=== PATIENT | male | born 1975 | race Caucasian/White ===

== ENCOUNTER 2016-11-30 15:35 | Outpatient (CLI) | payer BC ==
[~2016-11-30 15:35] MED LIST: BLOO-129 IN; DULO60CA45 PO; GLYB5TAB7 PO; HYDR-3326 GT; HYDR2TAB35 PO; LEVO50TA8 PO; LISI10TA59 PO; LORA1TAB82 PO; METF10002 PO; METO25TA6 PO; ZOLP10TA2 PO
== END 2016-11-30 23:59 | disposition home or self-care (01) ==
LOC: WOU 15:35
PROVIDERS: ATTEND Podiatrist Foot & Ankle Surgery
DX: E11.621 Type 2 diabetes mellitus with foot ulcer (principal); L97.522 Non-pressure chronic ulcer of other part of left foot with fat layer exposed; E11.610 Type 2 diabetes mellitus with diabetic neuropathic arthropathy; E11.40 Type 2 diabetes mellitus with diabetic neuropathy, unspecified; Z86.718 Personal history of other venous thrombosis and embolism; E66.01 Morbid (severe) obesity due to excess calories; Z68.43 Body mass index [BMI] 50.0-59.9, adult; Z71.3 Dietary counseling and surveillance; Z99.3 Dependence on wheelchair; Z79.02 Long term (current) use of antithrombotics/antiplatelets
CPT/HCPCS: 11042; 87070; 87075; A6402; 87186-TC

== ENCOUNTER 2016-12-28 13:45 | Outpatient (CLI) | payer BC | END 2016-12-28 23:59 | disposition home or self-care (01) | LOC: WOU 13:45 | PROVIDERS: ATTEND Podiatrist Foot & Ankle Surgery | DX: E11.621 Type 2 diabetes mellitus with foot ulcer (principal); L97.522 Non-pressure chronic ulcer of other part of left foot with fat layer exposed; E11.610 Type 2 diabetes mellitus with diabetic neuropathic arthropathy; E11.42 Type 2 diabetes mellitus with diabetic polyneuropathy; Z79.84 Long term (current) use of oral hypoglycemic drugs; Z79.02 Long term (current) use of antithrombotics/antiplatelets; Z86.718 Personal history of other venous thrombosis and embolism; E66.01 Morbid (severe) obesity due to excess calories; Z68.43 Body mass index [BMI] 50.0-59.9, adult; Z71.3 Dietary counseling and surveillance; Z83.3 Family history of diabetes mellitus; Z88.6 Allergy status to analgesic agent | CPT/HCPCS: 11042; 87070; 87077; 87186; A6402 ==

== ENCOUNTER 2017-01-11 12:15 | Outpatient (CLI) | payer BC | END 2017-01-11 23:59 | disposition home or self-care (01) | LOC: WOU 12:15 | PROVIDERS: ATTEND Podiatrist Foot & Ankle Surgery | DX: E11.621 Type 2 diabetes mellitus with foot ulcer (principal); L97.522 Non-pressure chronic ulcer of other part of left foot with fat layer exposed; L60.0 Ingrowing nail; E11.42 Type 2 diabetes mellitus with diabetic polyneuropathy; E66.01 Morbid (severe) obesity due to excess calories; Z68.43 Body mass index [BMI] 50.0-59.9, adult; Z86.718 Personal history of other venous thrombosis and embolism; Z83.3 Family history of diabetes mellitus; E11.610 Type 2 diabetes mellitus with diabetic neuropathic arthropathy; L03.116 Cellulitis of left lower limb | CPT/HCPCS: 11042; 11730; A6402 ==

== ENCOUNTER 2017-04-09 15:55 | Outpatient (CLI) | payer BC | END 2017-04-09 23:59 | disposition home or self-care (01) | LOC: WOU 15:55 | PROVIDERS: ATTEND Podiatrist Foot & Ankle Surgery | DX: E11.621 Type 2 diabetes mellitus with foot ulcer (principal); L97.521 Non-pressure chronic ulcer of other part of left foot limited to breakdown of skin; L03.116 Cellulitis of left lower limb; E11.610 Type 2 diabetes mellitus with diabetic neuropathic arthropathy; E11.42 Type 2 diabetes mellitus with diabetic polyneuropathy; Z79.84 Long term (current) use of oral hypoglycemic drugs; Z79.01 Long term (current) use of anticoagulants; E66.9 Obesity, unspecified; Z68.23 Body mass index [BMI] 23.0-23.9, adult | CPT/HCPCS: 11042; A6402 ==

== ENCOUNTER 2017-04-19 08:50 | Outpatient (CLI) | payer BC | END 2017-04-19 23:59 | disposition home or self-care (01) | LOC: WOU 08:50 | PROVIDERS: ATTEND Podiatrist Foot & Ankle Surgery | DX: E11.621 Type 2 diabetes mellitus with foot ulcer (principal); L97.521 Non-pressure chronic ulcer of other part of left foot limited to breakdown of skin; E11.42 Type 2 diabetes mellitus with diabetic polyneuropathy; L84 Corns and callosities; E11.610 Type 2 diabetes mellitus with diabetic neuropathic arthropathy; M21.171 Varus deformity, not elsewhere classified, right ankle; Z86.718 Personal history of other venous thrombosis and embolism; Z79.84 Long term (current) use of oral hypoglycemic drugs; Z79.01 Long term (current) use of anticoagulants | CPT/HCPCS: 11042; A6402 ×2 ==

== ENCOUNTER 2017-05-03 13:45 | Outpatient (CLI) | payer BC | END 2017-05-03 23:59 | disposition home or self-care (01) | LOC: WOU 13:45 | PROVIDERS: ATTEND Podiatrist Foot & Ankle Surgery | DX: E11.621 Type 2 diabetes mellitus with foot ulcer (principal); L97.521 Non-pressure chronic ulcer of other part of left foot limited to breakdown of skin; E11.610 Type 2 diabetes mellitus with diabetic neuropathic arthropathy; E11.42 Type 2 diabetes mellitus with diabetic polyneuropathy; E11.65 Type 2 diabetes mellitus with hyperglycemia; E46 Unspecified protein-calorie malnutrition; Z68.23 Body mass index [BMI] 23.0-23.9, adult; Z89.422 Acquired absence of other left toe(s); Z86.718 Personal history of other venous thrombosis and embolism; Z79.84 Long term (current) use of oral hypoglycemic drugs; Z79.01 Long term (current) use of anticoagulants | CPT/HCPCS: 11042; A6402 ==

== ENCOUNTER 2017-05-07 13:20 | Outpatient (CLI) | payer BC | END 2017-05-07 23:59 | disposition home or self-care (01) | LOC: WOU 13:20 | PROVIDERS: ATTEND Surgery Vascular Surgery | DX: Z48.812 Encounter for surgical aftercare following surgery on the circulatory system (principal); Z86.718 Personal history of other venous thrombosis and embolism; Z79.01 Long term (current) use of anticoagulants | CPT/HCPCS: 99214; A6402; G0463 ==

== ENCOUNTER 2017-05-14 09:00 | Outpatient (CLI) | payer BC | END 2017-05-14 23:59 | disposition home or self-care (01) | LOC: WOU 09:00 | PROVIDERS: ATTEND Podiatrist Foot & Ankle Surgery | DX: E11.621 Type 2 diabetes mellitus with foot ulcer (principal); L97.521 Non-pressure chronic ulcer of other part of left foot limited to breakdown of skin; M21.172 Varus deformity, not elsewhere classified, left ankle; M21.171 Varus deformity, not elsewhere classified, right ankle; E11.42 Type 2 diabetes mellitus with diabetic polyneuropathy; E11.610 Type 2 diabetes mellitus with diabetic neuropathic arthropathy; Z86.718 Personal history of other venous thrombosis and embolism; I87.9 Disorder of vein, unspecified; Z79.84 Long term (current) use of oral hypoglycemic drugs; Z79.01 Long term (current) use of anticoagulants | CPT/HCPCS: 11042; 93970-TC; A6402 ==

== ENCOUNTER 2017-05-22 09:45 | Outpatient (CLI) | payer BC | END 2017-05-22 23:59 | disposition home or self-care (01) | LOC: WOU 09:45 | PROVIDERS: ATTEND Podiatrist Foot & Ankle Surgery | DX: E11.621 Type 2 diabetes mellitus with foot ulcer (principal); L97.422 Non-pressure chronic ulcer of left heel and midfoot with fat layer exposed; L84 Corns and callosities; E66.9 Obesity, unspecified; Z68.23 Body mass index [BMI] 23.0-23.9, adult; E11.610 Type 2 diabetes mellitus with diabetic neuropathic arthropathy; M21.172 Varus deformity, not elsewhere classified, left ankle; M21.171 Varus deformity, not elsewhere classified, right ankle; Z86.718 Personal history of other venous thrombosis and embolism; E11.42 Type 2 diabetes mellitus with diabetic polyneuropathy; Z79.84 Long term (current) use of oral hypoglycemic drugs; Z79.01 Long term (current) use of anticoagulants | CPT/HCPCS: 11042; A6402 ==

== ENCOUNTER 2017-06-11 13:21 | Outpatient (CLI) | payer BC | END 2017-06-11 23:59 | disposition home or self-care (01) | LOC: WOU 13:21 | PROVIDERS: ATTEND Podiatrist Foot & Ankle Surgery | DX: E11.621 Type 2 diabetes mellitus with foot ulcer (principal); L97.521 Non-pressure chronic ulcer of other part of left foot limited to breakdown of skin; E11.42 Type 2 diabetes mellitus with diabetic polyneuropathy; R60.0 Localized edema; E11.610 Type 2 diabetes mellitus with diabetic neuropathic arthropathy; Z88.6 Allergy status to analgesic agent; Z79.84 Long term (current) use of oral hypoglycemic drugs; Z79.01 Long term (current) use of anticoagulants | CPT/HCPCS: 11042; A6402 ==

== ENCOUNTER 2017-06-25 13:15 | Outpatient (CLI) | payer BC | END 2017-06-25 23:59 | disposition home or self-care (01) | LOC: WOU 13:15 | PROVIDERS: ATTEND Podiatrist Foot & Ankle Surgery | DX: E11.621 Type 2 diabetes mellitus with foot ulcer (principal); L97.521 Non-pressure chronic ulcer of other part of left foot limited to breakdown of skin; E11.610 Type 2 diabetes mellitus with diabetic neuropathic arthropathy; M21.10 Varus deformity, not elsewhere classified, unspecified site; E11.42 Type 2 diabetes mellitus with diabetic polyneuropathy; E66.9 Obesity, unspecified; Z68.23 Body mass index [BMI] 23.0-23.9, adult | CPT/HCPCS: 11042; A6402 ==

== ENCOUNTER 2017-07-05 14:54 | Outpatient (CLI) | payer BC | END 2017-07-05 23:59 | disposition home or self-care (01) | LOC: WOU 14:54 | PROVIDERS: ATTEND Podiatrist Foot & Ankle Surgery | DX: E11.621 Type 2 diabetes mellitus with foot ulcer (principal); L97.521 Non-pressure chronic ulcer of other part of left foot limited to breakdown of skin; L84 Corns and callosities; E11.610 Type 2 diabetes mellitus with diabetic neuropathic arthropathy; E11.42 Type 2 diabetes mellitus with diabetic polyneuropathy; Z89.422 Acquired absence of other left toe(s); Z79.84 Long term (current) use of oral hypoglycemic drugs | CPT/HCPCS: 11042; A6402 ==

== ENCOUNTER 2017-07-19 13:55 | Outpatient (CLI) | payer BC ==
[2017-07-19] MEDS ORDERED: CEFT2VIA14 IV (17:05)
[2017-07-19] MEDS ORDERED: RIVA10TA PO (17:05)
[2017-07-19] MEDS ORDERED: SITA100T PO (17:05)
[2017-07-19] MEDS ORDERED: GLIM4TAB PO (17:05)
[2017-07-20] MEDS ORDERED: ANESTHESIA TRAY IN PYXIS 1 EA TRAY MC ONE (10:55)
== END 2017-07-19 23:59 | disposition home or self-care (01) ==
LOC: WOU 13:55
PROVIDERS: ATTEND Podiatrist Foot & Ankle Surgery
DX: E11.621 Type 2 diabetes mellitus with foot ulcer (principal); L97.521 Non-pressure chronic ulcer of other part of left foot limited to breakdown of skin; L02.611 Cutaneous abscess of right foot; Z89.422 Acquired absence of other left toe(s); L03.115 Cellulitis of right lower limb; E11.42 Type 2 diabetes mellitus with diabetic polyneuropathy; E66.9 Obesity, unspecified; Z68.23 Body mass index [BMI] 23.0-23.9, adult; E11.610 Type 2 diabetes mellitus with diabetic neuropathic arthropathy; Z79.84 Long term (current) use of oral hypoglycemic drugs
CPT/HCPCS: 10140; 87070-TC; 87075-TC; A6402; J2405; J2704

== ENCOUNTER 2017-07-19 16:05 | Inpatient (IN) | payer BC, OTHER ==
[~2017-07-19] VITALS: Ht 167.6 cm; Wt 145.1 kg
--- NOTE | 2017-07-19 16:15 | NUR ---
AAOX3, SENT BY DR MARION FOR R FOOT SWELLING AND PAIN. SKIN IS WARM AND DRY. RESP IS EVEN AND UNLABORED WITH NAD NOTED. DR LOUISE AT BS FOR EVAL.
[2017-07-19 16:56] LABS: EOSINOPHILS # (AUTO) 0.1 /CMM (0.0-0.7); MEAN CORPUSCULAR HEMOGLOBIN 25 PG (26.0-33.0); NEUTROPHILS # (AUTO) 13.3 /CMM (1.8-8.9)
[2017-07-19 16:57] LABS: BASOPHILS # (AUTO) 0.4 /CMM (0.0-0.2); BASOPHILS % (AUTO) 2.6 % (0.0-2.0); EOSINOPHILS % (AUTO) 0.5 % (0.0-6.0); HEMATOCRIT 33 % (39-51); HEMOGLOBIN 10.6 g/dL (13.5-17.5); LYMPHOCYTES % (AUTO) 6.3 % (20.0-44.0); MEAN CORPUSCULAR HGB CONC 32 g/dl (31.0-36.0); MEAN CORPUSCULAR VOLUME 79 fL (80-96); MONOCYTES % (AUTO) 6.2 % (2.0-12.0); NEUTROPHILS % (AUTO) 84.4 % (43.0-81.0); PLATELET COUNT (AUTO) 286 /CMM (150-450); RDW COEFFICIENT OF VARIATION 14.1 (11.5-15.0); RED BLOOD CELL COUNT(AUTO) 4.21 MIL/uL (4.5-6.0); WHITE BLOOD COUNT (AUTO) 15.8 K/uL (4.3-11.0)
[2017-07-19 17:03] LABS: CALCIUM, SERUM 8.2 mg/dL (8.5-10.1); CREATININE 1.3 mg/dL (0.6-1.3); POTASSIUM 4.3 mmol/L (3.5-5.1)
[2017-07-19] MEDS ORDERED: SITA100T PO (17:05)
[2017-07-19] MEDS ORDERED: CEFT2VIA14 IV (17:05)
[2017-07-19] MEDS ORDERED: GLIM4TAB PO (17:05)
[2017-07-19] MEDS ORDERED: RIVA10TA PO (17:05)
[2017-07-19 17:07] LABS: INR 1.08 (0.87-1.13); PROTHROMBIN TIME 11.2 SECS (9.5-12.7)
[2017-07-19] MEDS ORDERED: VANCOMYCIN 1.5 GM in IV D5W 500ml IV ONE (18:00)
[2017-07-19] MEDS ORDERED: PIPERACILLIN /TAZOBACTAM 3.375 G in IV D5W 50 ML IV ONE (18:00)
--- NOTE | 2017-07-19 18:06 | NUR ---
REPORT GIVEN TO SENA DODSON FOR MARCIN MS 307
--- NOTE | 2017-07-19 18:09 | NUR ---
RN NOTES RECEIVED REPORT FROM SHANK MAKER ALBERT FOR CONTINUATION OF CARE. PATIENT TO BE SENT TO MS [id number]. WILL AWAIT PATIENT ARRIVAL.
--- NOTE | 2017-07-19 18:36 | NUR ---
RN NOTES PATIENT RECEIVED IN STABLE CONDITION. PATIENT ADMITTED FOR RIGHT FOOT ABSCESS/CELLULITIS. I&D/DEBRIDEMENT SCHEDULED FOR TOMORROW (07/20) WITH DR. MARION. PATIENT RESTING IN BED WITH FAMILY AT THE BEDSIDE. PATIENT IS A/OX3. SATURATING ADEQUATELY ON RA. RESPIRATIONS APPEAR TO BE EVEN AND UNLABORED. PATIENT HAS NO COMPLAINT OF PAIN AT THIS TIME. PATIENT DENIES SOB. PATIENT APPEARS TO BE IN NO ACUTE DISTRESS. PATIENT HAS BANDAGED WOUNDS BILATERALLY. BED LOCKED IN THE LOWEST POSITION WITH SIDERAILS UP X2. CALL LIGHT WITHIN REACH. ADMISSION PROTOCOL TO BE CARRIED OUT BY NIGHT RN. REPORT GIVEN TO NIGHT RN FOR CONTINUATION OF CARE.
[2017-07-19] MEDS ORDERED: FEE PK DOSING 1 MIN EA MC ONE (19:42)
[2017-07-19 20:46] VITALS: BP 124/71
[2017-07-19] MEDS ORDERED: ACETAMINOPHEN 325 MG TABLET PO PRN (21:00)
[2017-07-19] MEDS ORDERED: ONDANSETRON HCL/PF 4 MG/2 ML VIAL IVP PRN (21:00)
[2017-07-19] MEDS ORDERED: HYDROCODONE/APAP 5/325MG 1 EACH TABLET PO PRN (21:00)
[2017-07-19] MEDS ORDERED: ZOLPIDEM TARTRATE 5 MG TABLET PO PRN (21:00)
[2017-07-19] MEDS ORDERED: Z GUARD REMEDY 2 OZ OINT TP PRN (21:00)
[2017-07-19] MEDS ORDERED: HYDROMORPHONE 1 MG/1 ML DISP.SYRIN ONE (21:33)
[2017-07-19] MEDS: HYDROMORPHONE INJ 2 MG/ML DISP.SYRIN IV PRN (21:40)
[2017-07-19] MEDS: LORAZEPAM 1 MG TABLET PO SCH (22:28)
[2017-07-19] MEDS: ZOLPIDEM TARTRATE 10 MG TABLET PO SCH (22:28)
[2017-07-19] MEDS ORDERED: DULOXETINE HCL 30 MG CAPSULE.DR ONE (22:59)
[2017-07-19] MEDS ORDERED: DULOXETINE HCL 20 MG CAPSULE.DR PO SCH (23:00)
[2017-07-20] MEDS: PIPERACILLIN /TAZOBACTAM 3.375 G in IV D5W 50 ML IV SCH ×4 (01:49→18:49)
[2017-07-20] MEDS ORDERED: HYDROMORPHONE INJ 2 MG/ML DISP.SYRIN ONE ×3 (01:54→08:25)
[2017-07-20] MEDS: HYDROMORPHONE INJ 2 MG/ML DISP.SYRIN IV PRN ×5 (02:03→19:57)
--- NOTE | 2017-07-20 07:15 | NUR ---
MS RN NOTES RECEIVED PATIENT IN BED, AWAKE. A/O X4. PATIENT IS FOR DEBRIDEMENT WOUND TODAY, PATIENT IS AWARE. ON ROOM AIR, NO SOB. CHANTAL PICC LINE PATENT AND INTACT, FLUSHES WELL. NO C/O PAIN AT THIS TIME. CALL LIGHT WITHIN REACH. CONSENT FORM FOR SURGERY IS IN THE CHART.
--- NOTE | 2017-07-20 07:22 | NUR ---
MS RN CLOSING NOTE PT REMAINED STABLE DURING DIRECTOR OF MANUFACTURING, NO SIGNIFICANT CHANGES NOTED, WILL ENDORSE TO INCOMING NURSE.
[2017-07-20] MEDS: LEVOTHYROXINE SODIUM 50 MCG TABLET PO SCH ×2 (07:30→10:35)
[2017-07-20 07:31] LABS: BASOPHILS % (AUTO) 0.3 % (0.0-2.0); EOSINOPHILS # (AUTO) 0.1 /CMM (0.0-0.7); EOSINOPHILS % (AUTO) 0.7 % (0.0-6.0); HEMATOCRIT 32 % (39-51); HEMOGLOBIN 10.1 g/dL (13.5-17.5); LYMPHOCYTES # (AUTO) 1.1 /CMM (0.8-4.8); LYMPHOCYTES % (AUTO) 8.8 % (20.0-44.0); MEAN CORPUSCULAR HEMOGLOBIN 26 PG (26.0-33.0); MEAN CORPUSCULAR HGB CONC 32 g/dl (31.0-36.0); MEAN CORPUSCULAR VOLUME 81 fL (80-96); MONOCYTES # (AUTO) 0.8 /CMM (0.1-1.30); MONOCYTES % (AUTO) 6.6 % (2.0-12.0); NEUTROPHILS # (AUTO) 10.5 /CMM (1.8-8.9); NEUTROPHILS % (AUTO) 83.6 % (43.0-81.0); PLATELET COUNT (AUTO) 258 /CMM (150-450); RDW COEFFICIENT OF VARIATION 14.5 (11.5-15.0); RED BLOOD CELL COUNT(AUTO) 3.91 MIL/uL (4.5-6.0); WHITE BLOOD COUNT (AUTO) 12.5 K/uL (4.3-11.0)
[2017-07-20 07:50] LABS: BILIRUBIN,TOTAL 0.4 mg/dL (0.2-1.0); CALCIUM, SERUM 8.2 mg/dL (8.5-10.1); CREATININE 1.1 mg/dL (0.6-1.3); MAGNESIUM 1.5 mg/dL (1.8-2.4); PHOSPHORUS 4.5 mg/dL (2.5-4.9); TOTAL PROTEIN, SERUM 6.7 g/dL (6.4-8.2)
[2017-07-20 07:57] LABS: THYROID STIMULATING HORMONE 1.683 uIU/mL (0.358-3.74)
[2017-07-20 08:00] VITALS: BP 127/65
--- NOTE | 2017-07-20 08:00 | NUR ---
PATIENT IS TAKEN TO OR FOR DEBRIDEMENT WOUND.
[2017-07-20] MEDS ORDERED: MIDAZOLAM HCL 2 MG/2ML VIAL ONE ×2 (08:25→08:39)
[2017-07-20] MEDS: METFORMIN 500 MG TABLET PO SCH ×3 (09:00→17:36)
[2017-07-20] MEDS: RIVAROXABAN 10 MG TABLET PO SCH (09:00)
[2017-07-20] MEDS ORDERED: DULOXETINE HCL 30 MG CAPSULE.DR PO SCH (09:00)
[2017-07-20] MEDS: LINAGLIPTIN 5 MG TABLET PO SCH (09:00)
[2017-07-20] MEDS: GLIMEPIRIDE 4 MG TABLET PO SCH (09:00)
--- NOTE | 2017-07-20 09:00 | NUR ---
AM MEDICATIONS NON ADMINISTERED, PATIENT STILL IN THE OR FOR DEBRIDEMENT.
[2017-07-20] MEDS: LISINOPRIL (10MG) 10 MG TABLET PO SCH (10:31)
--- NOTE | 2017-07-20 10:35 | NUR ---
PATIENT IS BACK FROM OR, S/P RIGHT FOOT I&D AND LEFT FOOT DEBRIDEMENT BY DR. PURCELL. MADE COMFORTABLE IN BED, WILDA. FOOT DRESSING IN PLACE, NO C/O PAIN AT THIS TIME. WILL CONT TO MONITOR.
[2017-07-20] MEDS: METOPROLOL TARTRATE 25 MG TABLET PO SCH ×2 (10:38→17:00)
[2017-07-20] MEDS: VANCOMYCIN 1.5 GM in IV D5W 500 ML IV SCH ×2 (11:24→22:56)
[2017-07-20] MEDS ORDERED: VANCOMYCIN 1.5 GM in IV D5W 500 ML IV SCH (12:00)
[2017-07-20] MEDS: Magnesium 1GM/D5W 100ML PREMIX 100 ML IV SCH ×2 (14:54→15:59)
[2017-07-20] MEDS ORDERED: DEXTROSE 50%-WATER 50 ML DISP.SYRIN IV PRN (15:00)
[2017-07-20 16:00] VITALS: BP 109/75
--- NOTE | 2017-07-20 16:46 | NUR ---
PER PATIENT HE HAS MILD ITCHING IN THE IV SITE AFTER VANCOMYCIN IS FINISHED. NO C/O SOB, MILD SKIN RASH NEAR IV PICC LINE TUBE NOTED. NOTIFIED DR. ANDRES WITH NEW ORDERS NOTED AND ACKNOWLEDGED.
[2017-07-20] MEDS: diphenhydrAMINE HCL 50 MG/ML VIAL IV PRN ×2 (17:01→23:02)
[2017-07-20] MEDS: BLOOD SUGAR DIAGNOSTIC 1 EACH STRIP VI SCH ×2 (17:36→21:11)
[2017-07-20] MEDS: INSULIN REGULAR, HUMAN 100 UNIT/ML 3 ML VIAL SQ PRN (17:38)
[2017-07-20] MEDS ORDERED: DULOXETINE HCL 20 MG CAPSULE.DR PO SCH (18:00)
--- NOTE | 2017-07-20 18:21 | NUR ---
MS RN CLOSING NOTES PATIENT IN BED, NOT IN DISTRESS. S/P RIGHT FOOT I&D AND LEFT FOOT DEBRIDEMENT WOUND TODAY, BOTH FEET DRESSING IN PLACE, NO BLEEDING NOTED. ON ANTIBIOTIC WITH NO ADVERSE SIDE EFFECT, AFEBRILE, NO DIARRHEA. NO C/O PAIN AT THIS TIME. PLACE CALL LIGHT WITHIN REACH. WILL ENDORSE TO LATH HAND RN FOR CONTINUITY OF CARE.
[2017-07-20] MEDS: LACTOBACILLUS RHAMNOSUS GG 1 EACH CAP.SPRINK PO SCH (18:50)
--- NOTE | 2017-07-20 19:30 | NUR ---
RN NOTES RECEIVED PATIENT IN BED AWAKE, AO X 3, ABLE TO MAKE NEEDS KNOWN. NO ACUTE DISTRESS NOTED. MONITORED FOR PAIN. NO SYMPTOMS OF HYPER/HYPOGLYCEMIA. IV SITE PATENT, INTACT; FLUSHED. BLE DRESSING INTACT. SAFETY REMINDERS GIVEN. ON LOW BED WITH BILATERAL UPPER SIDE RAILS UP. CALL LIGHT WITHIN EASY REACH. WILL CONTINUE TO MONITOR.
[2017-07-20 20:00] VITALS: BP 115/60
[2017-07-20] MEDS: DULOXETINE HCL 20 MG CAPSULE.DR PO SCH (21:11)
[2017-07-20] MEDS: LORAZEPAM 1 MG TABLET PO SCH (21:12)
[2017-07-20] MEDS: ZOLPIDEM TARTRATE 10 MG TABLET PO SCH (21:12)
[2017-07-20] MEDS: *INSULIN REGULAR(HUMULIN R)HUM 100 UNIT/ML VIAL SQ PRN (21:14)
--- NOTE | 2017-07-20 23:02 | NUR ---
RN NOTES PATIENT C/O ITCHINESS. BENADRYL GIVEN ORDERED. WILL CONTINUE TO MONITOR.
[2017-07-21] MEDS: HYDROMORPHONE INJ 2 MG/ML DISP.SYRIN IV PRN ×5 (01:32→21:10)
[2017-07-21] MEDS: PIPERACILLIN /TAZOBACTAM 3.375 G in IV D5W 50 ML IV SCH ×4 (01:32→19:30)
[2017-07-21] MEDS: diphenhydrAMINE HCL 50 MG/ML VIAL IV PRN ×2 (05:07→13:09)
--- NOTE | 2017-07-21 06:07 | NUR ---
RN NOTES PATIENT IN BED WITH EYES CLOSED; EASILY AROUSABLE. RESPIRATIONS EVEN. NO SIGNS OF PAIN NOTED. NO SYMPTOMS OF HYPER/HYPOGLYCEMIA. DUE MEDS GIVEN WITH NO ASE NOTED. NEEDS ATTENDED. SAFETY PRECAUTIONS AND COMFORT MEASURES IN PLACE. WILL GIVE REPORT TO DAY SHIFT FOR CONTINUITY OF CARE.
[2017-07-21] MEDS: BLOOD SUGAR DIAGNOSTIC 1 EACH STRIP VI SCH ×4 (06:42→21:54)
[2017-07-21] MEDS: INSULIN REGULAR, HUMAN 100 UNIT/ML 3 ML VIAL SQ PRN ×2 (06:44→12:34)
[2017-07-21 07:48] LABS: CALCIUM, SERUM 8.4 mg/dL (8.5-10.1); CREATININE 1.1 mg/dL (0.6-1.3); MAGNESIUM 1.7 mg/dL (1.8-2.4)
--- NOTE | 2017-07-21 08:00 | NUR ---
MS RN NOTES PT SLEEPING IN BED, NO DISCOMFORT OR ACUTE DISTRESS NOTED. PICC LINE ON RIGHT ARM, INTACT PATENT. BED IN LOW LOCKED POSITION. CONTINUING TO OBSERVE CLOSELY.
[2017-07-21] MEDS: METOPROLOL TARTRATE 25 MG TABLET PO SCH ×2 (08:26→17:10)
[2017-07-21] MEDS: LACTOBACILLUS RHAMNOSUS GG 1 EACH CAP.SPRINK PO SCH ×2 (08:27→17:10)
[2017-07-21] MEDS: RIVAROXABAN 10 MG TABLET PO SCH (08:27)
[2017-07-21] MEDS: LEVOTHYROXINE SODIUM 50 MCG TABLET PO SCH (08:27)
[2017-07-21] MEDS: LISINOPRIL (10MG) 10 MG TABLET PO SCH (08:27)
[2017-07-21] MEDS: GLIMEPIRIDE 4 MG TABLET PO SCH (08:28)
[2017-07-21] MEDS: LINAGLIPTIN 5 MG TABLET PO SCH (08:28)
[2017-07-21] MEDS: METFORMIN 500 MG TABLET PO SCH ×2 (08:28→17:10)
[2017-07-21] MEDS: DAKINS QUARTER STRENGTH (0.125%) 480 ML BOTTLE TOP SCH (08:38)
[2017-07-21 09:32] VITALS: BP 117/72
[2017-07-21] MEDS: VANCOMYCIN 1.5 GM in IV D5W 500 ML IV SCH ×3 (12:15→22:46)
[2017-07-21 16:00] VITALS: BP 109/70
[2017-07-21] MEDS: Magnesium 1GM/D5W 100ML PREMIX 100 ML IV SCH ×2 (18:08→20:48)
--- NOTE | 2017-07-21 19:45 | NUR ---
MS/RN NOTES RECEIVED PT. LYING IN BED. AWAKE, ALERT AND ORIENTED X4. BREATHING EVEN AND UNLABORED ON ROOM AIR. NO SOB, RESPIRATORY DISTRESS OR COMPLAINTS OF PAIN NOTED AT THIS TIME. PT. WITH RIGHT UPPER ARM PICC PRESENT, PATENT AND INTACT. BED IN LOWEST POSITION, CALL LIGHT WITHIN REACH, WILL CONTINUE TO MONITOR.
--- NOTE | 2017-07-21 20:30 | NUR ---
MS/RN NOTES PT. IS IN STABLE CONDITION. AWAKE, ALERT AND ORIENTED X4. BREATHING EVEN AND UNLABORED ON ROOM AIR. NO SOB, RESPIRATORY DISTRESS OR COMPLAINTS OF PAIN NOTED AT THIS TIME. PT. IS CURRENTLY LYING IN BED WATCHING TELEVISION. GAVE REPORT AND ENDORSED PT. TO RN JANET LOWE
[2017-07-21 20:35] VITALS: BP 117/74
--- NOTE | 2017-07-21 20:35 | NUR ---
MS RN NOTE RECEIVED PATIENT FROM ANOTHER RN, PATIENT IS ALERT AND ORIENTEDX4, DENIES RESPIRATORY DISTRESS OR PAIN AT THIS TIME, PICC LINE ON RIGHT UPPER ARM IS PATENT AND INTACT, HL ONLY. BOTH FEET ARE COVERED WITH DRESSINGS FOR CELLULITIS. SRX2, BED IN LOW POSITION, CALL LIGHT WITHIN REACH, WILL CONTINUE TO MONITOR PATIENT.
--- NOTE | 2017-07-21 21:00 | NUR ---
MS RN NOTE PATIENT COMPLAINS OF PAIN, DILAUDID 2MG WAS PULLED OUT FROM OMNICELL, AND WASTED 1MG WITH ANOTHER RN ARA WITNESS.
[2017-07-21] MEDS: DULOXETINE HCL 20 MG CAPSULE.DR PO SCH (21:52)
[2017-07-21] MEDS: ZOLPIDEM TARTRATE 10 MG TABLET PO SCH (21:52)
[2017-07-21] MEDS: LORAZEPAM 1 MG TABLET PO SCH (21:52)
[2017-07-22] MEDS: diphenhydrAMINE HCL 50 MG/ML VIAL IV PRN ×3 (00:07→16:40)
[2017-07-22] MEDS: PIPERACILLIN /TAZOBACTAM 3.375 G in IV D5W 50 ML IV SCH ×4 (00:52→18:57)
--- NOTE | 2017-07-22 01:00 | NUR ---
MS RN NOTE PATIENT COMPLAINS OF PAIN, DILAUDID 2MG WAS PULLED OUT FROM OMNICELL, AND WASTED 1MG WITH ANOTHER RN PABLO WITNESS. BUT ACCIDENTALLY PULLED OUT 2X DILAUDID VIALS INSTEAD OF 1 VIAL, REPORTED TO [facility] RN [place] AND WILL FIX THE STOCK COUNT IN OMNICELL.
--- NOTE | 2017-07-22 01:10 | NUR ---
MS RN NOTE PATIENT COMPLAINS OF PAIN ON HIS FEET, DILAUDID 1MG IVP GIVEN. WILL MONITOR EFFECTIVENESS.
[2017-07-22] MEDS: HYDROMORPHONE INJ 2 MG/ML DISP.SYRIN IV PRN ×6 (01:11→23:30)
--- NOTE | 2017-07-22 05:00 | NUR ---
MS RN NOTE PATIENT COMPLAINS OF PAIN, DILAUDID 2MG WAS PULLED OUT FROM OMNICELL, AND WASTED 1MG WITH ANOTHER RN ELLEN WITNESS.
--- NOTE | 2017-07-22 05:10 | NUR ---
MS RN NOTE PATIENT COMPLAINS OF PAIN AND KEEPS MOANING, DILAUDID 1MG IVP GIVEN. WILL MONITOR EFFECTIVENESS.
[2017-07-22] MEDS: INSULIN REGULAR, HUMAN 100 UNIT/ML 3 ML VIAL SQ PRN ×2 (06:14→12:37)
[2017-07-22] MEDS: BLOOD SUGAR DIAGNOSTIC 1 EACH STRIP VI SCH ×4 (06:21→21:44)
[2017-07-22 06:43] LABS: CALCIUM, SERUM 8.8 mg/dL (8.5-10.1); CREATININE 1.2 mg/dL (0.6-1.3); MAGNESIUM 1.7 mg/dL (1.8-2.4); POTASSIUM 4.2 mmol/L (3.5-5.1)
--- NOTE | 2017-07-22 06:47 | NUR ---
MS RN NOTE PATIENT IS SLEEPING IN BED COMFORTABLY, NO S/S OF RESPIRATORY DISTRESS AND NO COMPLAINS OF PAIN NOTED. NO ACUTE DISTRESS NOTED THROUGHOUT THE SHIFT, WILL ENDORSE TO DAY SHIFT NURSE FOR MARCIN.
--- NOTE | 2017-07-22 07:00 | NUR ---
MS RN NOTE FIXED DISCREPANCY OF DILAUDID THAT ACCIDENTALLY PULLED ONE MORE OUT AROUND 0100 WITH CHG SENA COLEMAN.
[2017-07-22 08:00] VITALS: BP 121/67
--- NOTE | 2017-07-22 08:00 | NUR ---
MS RN NOTES PATIENT IN BED RESTING NO SOB OR ACUTE DISTRESS NOTED. BED IN LOW LOCKED POSITION CALL LIGHT WITHIN REACH. PICC LINE ON RIGHT UPPER ARM INTACT PATENT. WILL CONTINUE TO MONITOR.
[2017-07-22] MEDS: GLIMEPIRIDE 4 MG TABLET PO SCH (08:10)
[2017-07-22] MEDS: METFORMIN 500 MG TABLET PO SCH ×2 (08:10→16:39)
[2017-07-22] MEDS: LEVOTHYROXINE SODIUM 50 MCG TABLET PO SCH (08:10)
[2017-07-22] MEDS: METOPROLOL TARTRATE 25 MG TABLET PO SCH ×2 (08:11→16:41)
[2017-07-22] MEDS: LACTOBACILLUS RHAMNOSUS GG 1 EACH CAP.SPRINK PO SCH ×2 (08:11→16:39)
[2017-07-22] MEDS: LINAGLIPTIN 5 MG TABLET PO SCH (08:11)
[2017-07-22] MEDS: RIVAROXABAN 10 MG TABLET PO SCH (08:12)
[2017-07-22] MEDS: DAKINS QUARTER STRENGTH (0.125%) 480 ML BOTTLE TOP SCH (08:13)
[2017-07-22] MEDS: LISINOPRIL (10MG) 10 MG TABLET PO SCH (08:13)
--- NOTE | 2017-07-22 09:30 | NUR ---
MS SHETTY NOTES DEBRIDEMENT PERFORMED BY DR. WAN OF LEFT FOOT, CONSENT OBTAINED. PATIENT TOLERATED PROCEDURE WELL. WILL CONTINUE TO MONITOR. Addendum: 07/22/17 at 1008 by CHINTAN CASTILLO RN ERROR: DEBRIDEMENT OF RIGHT FOOT
[2017-07-22] MEDS ORDERED: VANC1.5P10 IV (10:30)
[2017-07-22] MEDS: VANCOMYCIN 1.5 GM in IV D5W 500 ML IV SCH ×2 (10:51→23:05)
--- NOTE | 2017-07-22 12:00 | NUR ---
MS RN NOTES PATIENT SEEN AND EVALUATED BY DR. ANDRES ORDER FOR DISCHARGE RECEIVED NOTED CARRIED OUT. WAITING FOR CASE MANAGEMENT TO ARRANGE IV MEDICATION AND HOME HEALTH.
--- NOTE | 2017-07-22 15:00 | NUR ---
MS RN NOTES PER GARBAGE WORKER IV HOME HEALTH UNABLE TO SEE PATIENT TODAY. PATIENTS DC TO BE HELD UNTIL HOME HEALTH IS ARRANGED.
[2017-07-22] MEDS: Magnesium 1GM/D5W 100ML PREMIX 100 ML IV SCH ×2 (15:09→16:39)
[2017-07-22 16:00] VITALS: BP 120/70
--- NOTE | 2017-07-22 19:24 | NUR ---
MS RN NOTES PATIENT IN BED RESTING NO SOB OR ACUTE DISTRESS NOTED. ALL DUE MEDICATIONS ADMINISTERED. ALL NEEDS MET. PICC LINE ON RIGHT UPPER ARM INTACT PATENT. WILL ENDORSE TO PM SHIFT MARCIN.
[2017-07-22 20:00] VITALS: BP 133/84
--- NOTE | 2017-07-22 20:36 | NUR ---
RN NOTES RECEIVED PATIENT IN BED, LYING ON HIS STOMACH, TALKING ON THE PHONE WITH FAMILY, NO SOB, NO RESPIRATORY DISTRESS, RECEIVED DILAUDID EARLIER FROM AM NURSE, RIGHT UPPER ARM PICC LINE IS PATENT AND INFUSING WELL, NEEDS ATTENDED, CALL LIGHT WITHIN REACH.
[2017-07-22 21:09] VITALS: BP 133/84
[2017-07-22] MEDS: *INSULIN REGULAR(HUMULIN R)HUM 100 UNIT/ML VIAL SQ PRN (21:50)
[2017-07-22] MEDS: DULOXETINE HCL 20 MG CAPSULE.DR PO SCH (22:29)
[2017-07-22] MEDS: LORAZEPAM 1 MG TABLET PO SCH (22:29)
[2017-07-22] MEDS: ZOLPIDEM TARTRATE 10 MG TABLET PO SCH (22:29)
--- NOTE | 2017-07-22 23:48 | NUR ---
RN NOTES PATIENT COMPLAINING OF PAIN OF 9/10 TO BILATERAL FEET, GIVEN ATIVAN AND AMBIEN ALMOST AN HOUR AGO, PATIENT IS ALERT AND ORIENTED X4, NO SOB, NO RESPIRATORY DISTRESS. GIVEN DILAUDID 1MG IVP PER PATIENT'S REQUEST.
[2017-07-23] MEDS: PIPERACILLIN /TAZOBACTAM 3.375 G in IV D5W 50 ML IV SCH ×3 (00:24→14:06)
[2017-07-23] MEDS: HYDROMORPHONE INJ 2 MG/ML DISP.SYRIN IV PRN ×3 (03:29→13:17)
--- NOTE | 2017-07-23 03:33 | NUR ---
RN NOTES COMPLAINING OF 9/10 PAIN TO BILATERAL FEET, GIVEN DILAUDID 1 MG IVP, NO RESIDUAL DROWSINESS FROM PREVIOUS ADMINISTRATION, VSS. WILL CONTINUE TO MONITOR.
--- NOTE | 2017-07-23 03:59 | NUR ---
RN NOTES PATIENT REQUESTED ACCUCHECK, PER PATIENT "I FEEL LIKE MY BG IS HIGH." BG 266 MG/DL, EXPLAINED TO PATIENT NO SCHEDULE COVERAGE, NEXT ACCUCHECK IS 6:30. PT VERBALIZED UNDERSTANDING
[2017-07-23] MEDS: diphenhydrAMINE HCL 50 MG/ML VIAL IV PRN ×2 (04:40→11:54)
--- NOTE | 2017-07-23 06:26 | NUR ---
RN NOTES PATIENT IN BED, ALERT AND AWAKE, NO SOB, NO RESPIRATORY DISTRESS, NO RESIDUAL DROWSINESS. COMPLAINED OF BILATERAL FEET PAIN OF 8/10 AND PROVIDED PAIN MEDICATION DURING SHIFT, HAS EPISODES OF RESTLESSNESS, CHANTAL PICC LINE IS PATENT AND SECURED WITH DRESSING. ALL NEEDS ATTENDED, ALL DUE MEDICATIONS GIVEN, CALL LIGHT WITHIN REACH.
[2017-07-23] MEDS: BLOOD SUGAR DIAGNOSTIC 1 EACH STRIP VI SCH ×2 (06:42→12:04)
[2017-07-23] MEDS: INSULIN REGULAR, HUMAN 100 UNIT/ML 3 ML VIAL SQ PRN ×2 (06:45→12:41)
[2017-07-23 07:53] LABS: CALCIUM, SERUM 8.5 mg/dL (8.5-10.1); CREATININE 1.2 mg/dL (0.6-1.3); MAGNESIUM 1.6 mg/dL (1.8-2.4); POTASSIUM 4.4 mmol/L (3.5-5.1)
--- NOTE | 2017-07-23 07:58 | NUR ---
MS RN NOTES PATIENT SLEEPING IN BED. NO SOB, SO ACUTE DISTRESS OR DISCOMFORT NOTED AT THIS TIME. PICC LINE ON RIGHT UPPER ARM, INTACT PATENT. NO C/O PAIN NOTED. BED IN LOW LOCKED POSITION. CALL LIGHT WITHIN REACH. CONTINUING TO MONITOR.
[2017-07-23 08:00] VITALS: BP 108/68
[2017-07-23] MEDS: GLIMEPIRIDE 4 MG TABLET PO SCH (08:26)
[2017-07-23] MEDS: LEVOTHYROXINE SODIUM 50 MCG TABLET PO SCH (08:26)
[2017-07-23] MEDS: METOPROLOL TARTRATE 25 MG TABLET PO SCH (08:26)
[2017-07-23] MEDS: LINAGLIPTIN 5 MG TABLET PO SCH (08:26)
[2017-07-23] MEDS: RIVAROXABAN 10 MG TABLET PO SCH (08:27)
[2017-07-23] MEDS: LACTOBACILLUS RHAMNOSUS GG 1 EACH CAP.SPRINK PO SCH (08:27)
[2017-07-23] MEDS: METFORMIN 500 MG TABLET PO SCH (08:27)
[2017-07-23] MEDS: LISINOPRIL (10MG) 10 MG TABLET PO SCH (08:55)
[2017-07-23] MEDS: DAKINS QUARTER STRENGTH (0.125%) 480 ML BOTTLE TOP SCH (10:53)
[2017-07-23] MEDS: Magnesium 1GM/D5W 100ML PREMIX 100 ML IV SCH ×2 (10:54→12:29)
[2017-07-23] MEDS ORDERED: VANCOMYCIN 1.25 GM in IV D5W 500 ML IV SCH ×2 (11:00→23:00)
[2017-07-23] MEDS: VANCOMYCIN 1.5 GM in IV D5W 500 ML IV SCH (11:15)
[2017-07-23 16:00] VITALS: BP 134/67
--- NOTE | 2017-07-23 16:48 | NUR ---
RN NOTES PATIENT WITH ORDERS TO DC TO HOME WITH HOME HEALTH, PICCLINE NOT TO BE REMOVED FOR KEYSEATING MACHINE SET UP OPERATOR ANTIBIOTICS, PER ID PT TO HAVE ROCEPHIN 1 GM Q 24H X 6WEEKS AND VANCOMYCIN 1.25GM Q 12H X 6WEEKS, DR. ANDRES AND CASE MANAGEMENT AWARE PER FIELD COUNSEL ALL MEDICATIONS ORDERED FROM PHARMACY, WILL ASSIST AND DISCHARGE PROCESS AND CONTINUE TO MONITOR, PICTURES OF SKIN TAKEN AND PLACED IN CHART Addendum: 07/23/17 at 1732 by JAYLENE ALMANZAR RN RN NOTES CORRECTION OF NOTE, PATIENT REFUSED PICTURES OF SKIN, NURSING EDUCATION REINFORCED, PATIENT CONTINUES TO REFUSE, RESPECTED PATIENTS RIGHTS
[2017-07-23] MEDS ORDERED: CEFTRIAXONE 1 G in IV D5W 50 ML IV SCH (17:00)
--- NOTE | 2017-07-23 18:08 | NUR ---
MS SHETTY NOTES PATIENT AWAKE ALERT AND VERBALLY RESPONSIVE,ABLE TO MAKE NEEDS, RESPIRATIONS EVEN AND UNLABORED,DENIES ANY PAIN OR DISCOMFORT. PICC LINE ON RIGHT UPPER ARM, INTACT PATENT, NO REDNESS OR INFILTRATION NOTED, PATIENT TO KEEP PICC LINE IN PLACE FOR RETIREMENT ANTIBIOTICS, NO C/O PAIN OR DISCOMFORT NOTED.ID BAND REMOVED, ALL DISCHARGE INSTRUCTIONS PROVIDED WITH VERBAL UNDERSTANDING NOTED. WEB CONTENT COORDINATOR ARRANGED HOME HEALTH AND IV ATB ADMINISTRATION WITH ALDAIR SHETTY. ALL BELONGINGS ACCOUNTED FOR, ASSISTED TO LOBBY BY EDDIE, DISCHARGED TO HOME IN STABLE CONDITION Addendum: 07/23/17 at 1822 by JAYLENE ALMANZAR RN SENA NOTE CORRECTION OF DISCHARGE [id number]
== END 2017-07-23 17:15 | disposition home health service (06) | DRG 871 ==
LOC: ER 16:06 → MED 19:07
PROVIDERS: ADMIT Nurse Practitioner Acute Care; ATTEND Nurse Practitioner Acute Care
PROC: 02HV33Z Insertion of Infusion Device into Superior Vena Cava, Percutaneous Approach (ICD-10-PCS; principal; 2017-07-20 09:00)
DX: A41.9 Sepsis, unspecified organism (principal); E43 Unspecified severe protein-calorie malnutrition; E11.610 Type 2 diabetes mellitus with diabetic neuropathic arthropathy; L03.115 Cellulitis of right lower limb; Z68.43 Body mass index [BMI] 50.0-59.9, adult; L02.611 Cutaneous abscess of right foot; E11.621 Type 2 diabetes mellitus with foot ulcer; E11.69 Type 2 diabetes mellitus with other specified complication; Z88.5 Allergy status to narcotic agent; Z79.84 Long term (current) use of oral hypoglycemic drugs; Z98.84 Bariatric surgery status; Z86.718 Personal history of other venous thrombosis and embolism; L97.509 Non-pressure chronic ulcer of other part of unspecified foot with unspecified severity; I25.10 Atherosclerotic heart disease of native coronary artery without angina pectoris; I10 Essential (primary) hypertension; E66.01 Morbid (severe) obesity due to excess calories; E11.319 Type 2 diabetes mellitus with unspecified diabetic retinopathy without macular edema; E03.9 Hypothyroidism, unspecified
CPT/HCPCS: 36415; 71010-TC; 73630-TC; 80048-TC; 80053-TC; 80061-TC; 80202-TC; 82962-TC; 83735-TC; 84100-TC; 84443-TC; 85025-TC; 85730-TC; 87040-TC; 87070-TC; 87081-TC; 87186-TC; 93971-TC; A4217; A4606; A6253; A6402; A6407; J0696; J1170; J1200; J1815; J2250; J2543; J3370; J3475; J7050; J7060; Z7610

== ENCOUNTER 2017-07-24 11:01 | Emergency (ER) | payer BC, OTHER ==
[~2017-07-24] VITALS: Ht 167.6 cm; Wt 145.1 kg
[2017-07-24 11:01] VITALS: BP 111/91
[~2017-07-24 11:01] MED LIST changes: +CEFT2VIA14 IV; +GLIM4TAB PO; -GLYB5TAB7 PO; -HYDR2TAB35 PO; +RIVA10TA PO; +SITA100T PO; +VANC1.5P10 IV
--- NOTE | 2017-07-24 11:29 | NUR ---
PICC LINE NURSE CALLED, ETA 1400, BRIANNA
--- NOTE | 2017-07-24 12:25 | NUR ---
PATIENT IN WR TO WAIT FOR PICC LINE NURSE
== END 2017-07-24 17:33 | disposition home or self-care (01) ==
LOC: ER 11:03
DX: T82.49XA Other complication of vascular dialysis catheter, initial encounter (principal); I10 Essential (primary) hypertension; E11.621 Type 2 diabetes mellitus with foot ulcer; H35.039 Hypertensive retinopathy, unspecified eye; Z86.718 Personal history of other venous thrombosis and embolism; Z98.890 Other specified postprocedural states; Z88.6 Allergy status to analgesic agent
CPT/HCPCS: 36569; 71010 ×2; 99285; A4606; A6402; C1751; Z7610

== ENCOUNTER 2017-07-26 10:58 | Outpatient (CLI) | payer BC, OTHER | END 2017-07-26 23:59 | disposition home or self-care (01) | LOC: WOU 10:58 | PROVIDERS: ATTEND Podiatrist Foot & Ankle Surgery | DX: Z48.817 Encounter for surgical aftercare following surgery on the skin and subcutaneous tissue (principal); L97.513 Non-pressure chronic ulcer of other part of right foot with necrosis of muscle; L03.115 Cellulitis of right lower limb; E11.610 Type 2 diabetes mellitus with diabetic neuropathic arthropathy; E11.42 Type 2 diabetes mellitus with diabetic polyneuropathy; E11.621 Type 2 diabetes mellitus with foot ulcer; M21.172 Varus deformity, not elsewhere classified, left ankle; M21.171 Varus deformity, not elsewhere classified, right ankle | CPT/HCPCS: 11043; A6209; A6402 ==

== ENCOUNTER 2017-08-02 14:18 | Outpatient (CLI) | payer BC, OTHER | END 2017-08-02 23:59 | disposition home or self-care (01) | LOC: WOU 14:18 | PROVIDERS: ATTEND Podiatrist Foot & Ankle Surgery | DX: T81.89XA Other complications of procedures, not elsewhere classified, initial encounter (principal); E11.610 Type 2 diabetes mellitus with diabetic neuropathic arthropathy; E11.42 Type 2 diabetes mellitus with diabetic polyneuropathy; Z79.4 Long term (current) use of insulin; Z79.84 Long term (current) use of oral hypoglycemic drugs | CPT/HCPCS: 11043; A6209; A6402 ==

== ENCOUNTER 2017-08-09 14:13 | Outpatient (CLI) | payer BC, OTHER | END 2017-08-09 23:59 | disposition home or self-care (01) | LOC: WOU 14:13 | PROVIDERS: ATTEND Podiatrist Foot & Ankle Surgery | DX: E11.621 Type 2 diabetes mellitus with foot ulcer (principal); L97.512 Non-pressure chronic ulcer of other part of right foot with fat layer exposed; E11.42 Type 2 diabetes mellitus with diabetic polyneuropathy; E11.610 Type 2 diabetes mellitus with diabetic neuropathic arthropathy; Z79.84 Long term (current) use of oral hypoglycemic drugs; Z79.899 Other long term (current) drug therapy; M21.171 Varus deformity, not elsewhere classified, right ankle; Z98.890 Other specified postprocedural states | CPT/HCPCS: 11042; A6209; A6402 ==

== ENCOUNTER 2017-08-30 13:35 | Outpatient (CLI) | payer OTHER | END 2017-08-30 23:59 | disposition home or self-care (01) | LOC: WOU 13:35 | PROVIDERS: ATTEND Podiatrist Foot & Ankle Surgery | DX: E11.42 Type 2 diabetes mellitus with diabetic polyneuropathy (principal); E11.610 Type 2 diabetes mellitus with diabetic neuropathic arthropathy; E66.9 Obesity, unspecified; Z68.23 Body mass index [BMI] 23.0-23.9, adult; Z71.3 Dietary counseling and surveillance; M21.172 Varus deformity, not elsewhere classified, left ankle; M21.171 Varus deformity, not elsewhere classified, right ankle; L84 Corns and callosities | CPT/HCPCS: A6402; G0463 ==

== ENCOUNTER 2017-09-10 13:50 | Outpatient (CLI) | payer OTHER | END 2017-09-10 23:59 | disposition home or self-care (01) | LOC: WOU 13:50 | PROVIDERS: ATTEND Podiatrist Foot & Ankle Surgery | DX: E11.621 Type 2 diabetes mellitus with foot ulcer (principal); L97.421 Non-pressure chronic ulcer of left heel and midfoot limited to breakdown of skin; E11.42 Type 2 diabetes mellitus with diabetic polyneuropathy; R60.0 Localized edema; E66.9 Obesity, unspecified; Z68.23 Body mass index [BMI] 23.0-23.9, adult; Z71.3 Dietary counseling and surveillance; E11.610 Type 2 diabetes mellitus with diabetic neuropathic arthropathy | CPT/HCPCS: 11042; A6402 ==

== ENCOUNTER 2017-09-17 13:31 | Outpatient (CLI) | payer OTHER | END 2017-09-17 23:59 | disposition home or self-care (01) | LOC: WOU 13:31 | PROVIDERS: ATTEND Podiatrist Foot & Ankle Surgery | DX: E11.621 Type 2 diabetes mellitus with foot ulcer (principal); L97.421 Non-pressure chronic ulcer of left heel and midfoot limited to breakdown of skin; E11.42 Type 2 diabetes mellitus with diabetic polyneuropathy; L60.0 Ingrowing nail; E11.610 Type 2 diabetes mellitus with diabetic neuropathic arthropathy; L60.3 Nail dystrophy; E66.9 Obesity, unspecified; Z68.23 Body mass index [BMI] 23.0-23.9, adult; M21.172 Varus deformity, not elsewhere classified, left ankle; M21.171 Varus deformity, not elsewhere classified, right ankle; Z79.84 Long term (current) use of oral hypoglycemic drugs; Z79.01 Long term (current) use of anticoagulants | CPT/HCPCS: 11042; A6402 ==

== ENCOUNTER 2017-10-29 10:50 | Inpatient (IN) | payer OTHER ==
[~2017-10-29] VITALS: Ht 167.6 cm; Wt 145.1 kg
--- NOTE | 2017-10-29 11:10 | NUR ---
PRESENTS TO ER C/O ABDOMINAL PAIN , NAUSEA, DIARRHEA X 4 DAYS. PATIENT A/OX 4. BREATHING EVEN AND UNLABORED. NO SOB. VITALS STABLE. SAFETY AND COMFORT MEASURES IN PLACE. AWAITING MD ORDERS.
--- NOTE | 2017-10-29 11:35 | NUR ---
NEW IV STARTED ON RAC, 20 G. BLOOD DRAWN AND SENT TO LAB.
[2017-10-29 11:48] LABS: HEMOGLOBIN 13.1 g/dL (13.5-17.5); LYMPHOCYTES # (AUTO) 1.6 /CMM (0.8-4.8); LYMPHOCYTES % (AUTO) 15.5 % (20.0-44.0); WHITE BLOOD COUNT (AUTO) 10.2 K/uL (4.3-11.0)
[2017-10-29 11:54] LABS: BASOPHILS % (AUTO) 0.2 % (0.0-2.0); EOSINOPHILS % (AUTO) 0.3 % (0.0-6.0); HEMATOCRIT 42 % (39-51); MEAN CORPUSCULAR HEMOGLOBIN 24 PG (26.0-33.0); MEAN CORPUSCULAR HGB CONC 32 g/dl (31.0-36.0); MEAN CORPUSCULAR VOLUME 76 fL (80-96); MONOCYTES # (AUTO) 0.6 /CMM (0.1-1.30); MONOCYTES % (AUTO) 5.4 % (2.0-12.0); NEUTROPHILS % (AUTO) 78.6 % (43.0-81.0); PLATELET COUNT (AUTO) 58 /CMM (150-450); RDW COEFFICIENT OF VARIATION 14.1 (11.5-15.0); RED BLOOD CELL COUNT(AUTO) 5.51 MIL/uL (4.5-6.0)
[2017-10-29] MEDS ORDERED: IV NS 0.9% 1,000 ML BAG IV ONE (12:00)
[2017-10-29 12:03] LABS: INR 1.21 (0.87-1.13); PROTHROMBIN TIME 12.6 SECS (9.5-12.7)
--- NOTE | 2017-10-29 12:05 | NUR ---
PLANER CHAIN OFFBEARER AT BEDSIDE.
[2017-10-29 12:06] LABS: CALCIUM, SERUM 8.8 mg/dL (8.5-10.1); CARBON DIOXIDE 24 mmol/L (21-32); CHLORIDE 101 mmol/L (98-107); CREATININE 1.4 mg/dL (0.6-1.3); GLUCOSE 257 mg/dL (74-106); POTASSIUM 3.8 mmol/L (3.5-5.1); SODIUM SERUM 137 mmol/L (136-145); UREA NITROGEN, BLOOD 16 mg/dL (7-18)
[2017-10-29 12:13] LABS: ALANINE AMINOTRANSFERASE 38 U/L (12-78); ALBUMIN 3.6 g/dL (3.4-5.0); ALKALINE PHOSPHATASE 120 U/L (46-116); ASPARTATE AMINOTRANSFERASE 25 U/L (15-37); BILIRUBIN,DIRECT 0.1 mg/dL (0.0-0.2); BILIRUBIN,TOTAL 0.4 mg/dL (0.2-1.0); TOTAL PROTEIN, SERUM 7.3 g/dL (6.4-8.2)
[2017-10-29] MEDS ORDERED: LISI-603 PO (12:53)
--- NOTE | 2017-10-29 12:57 | NUR ---
Dwayne shah in EDM - 10/29/17 at 1258 by RHILOMEN PATIENT DENIES USE OF ANTIBIOTICS AT THIS TIME OR PRIOR TO ARRIVAL. PATIENT ALSO DENIES ANY HISTORY OF C-DIFF. MD PRIETO.
--- NOTE | 2017-10-29 12:58 | NUR ---
PATIENT DENIES USE OF ANTIBIOTICS AT THIS TIME OR PRIOR TO ARRIVAL. PATIENT ALSO DENIES ANY HISTORY OF C-DIFF. INFORMED.
[2017-10-29] MEDS ORDERED: PIPERACILLIN /TAZOBACTAM 3.375 G in IV D5W 50 ML IV ONE (13:00)
[2017-10-29] MEDS ORDERED: VANCOMYCIN 1 GM in IV D5W 250 ML IV ONE (13:00)
[2017-10-29 13:12] LABS: LYMPHOCYTES % (MANUAL) 19 % (16-48); MONOCYTES % (MANUAL) 7 % (0-11.0); NEUTROPHILS % (MANUAL) 74 (42-76)
--- NOTE | 2017-10-29 14:23 | NUR ---
REPORT GIVEN TO MELISSA SHETTY FOR MARCIN UPON ADMISSION.
[2017-10-29] MEDS ORDERED: IV NS 0.9% 1,000 ML IV PRN (14:41)
--- NOTE | 2017-10-29 14:55 | NUR ---
PATIENT TRANSPORTED TO [facility] VIA STRETCHER. RNMELISSA TO PROVIDE MARCIN.
[2017-10-29] MEDS ORDERED: ACETAMINOPHEN 325 MG TABLET PO PRN (15:00)
[2017-10-29] MEDS ORDERED: DEXTROSE 50%-WATER 50 ML DISP.SYRIN IV PRN (15:00)
[2017-10-29] MEDS ORDERED: Z GUARD REMEDY 2 OZ OINT TP PRN (15:00)
[2017-10-29] MEDS ORDERED: MAGNESIUM HYDROXIDE 30 ML UDC PO PRN (15:00)
[2017-10-29] MEDS ORDERED: hydrALAZINE HCL 25 MG TABLET PO PRN (15:00)
[2017-10-29] MEDS ORDERED: *INSULIN REGULAR(HUMULIN R)HUM 100 UNIT/ML VIAL SQ PRN (15:00)
[2017-10-29] MEDS ORDERED: ONDANSETRON HCL/PF 4 MG/2 ML VIAL IVP PRN (15:00)
[2017-10-29] MEDS ORDERED: HYDROCODONE/APAP 5/325MG 1 EACH TABLET PO PRN (15:00)
[2017-10-29] MEDS ORDERED: MAG HYDROX/AL HYDROX/SIMETH 30 ML UDC PO PRN (15:00)
[2017-10-29] MEDS: BLOOD SUGAR DIAGNOSTIC 1 EACH STRIP VI SCH ×3 (15:00→23:04)
--- NOTE | 2017-10-29 15:00 | NUR ---
PATIENT ADMITTED FROM ER WITH CHIEF COMPLAINT OF FREQUENT DIARRHEA FOR A WEEK. NO ABDOMINAL PAIN UPON ADMISSION. AWAKE, ALERT AND ORIENTED. WHEELCHAIR BOUND BUT INDEPENDENT WITH ADLS. ABLE TO REPOSITION SELF IN BED FOR COMFORT. WITH LEFT FOOT DRESSING CLEAN, DRY AND INTACT. NO SIGNS OF BLEEDINGNOTED. JUST DEBRIDED IN ER BY DR. MARION. NO PHOTOS TAKEN DUE TO RECENT PROCEDURE-VERIFIED WITH CHARGE NURSE SOON. ADMISSION ASSESSMENT INITIATED.
[2017-10-29 16:00] VITALS: BP 102/57
[2017-10-29 16:15] VITALS: BP 102/57
--- NOTE | 2017-10-29 16:30 | NUR ---
PATIENT STATED HAS TAKEN XARELTO TODAY IN AM. NON ADMINISTERED.
[2017-10-29] MEDS ORDERED: RIVAROXABAN 10 MG TABLET PO SCH (17:00)
[2017-10-29] MEDS: METOPROLOL TARTRATE 25 MG TABLET PO SCH (17:06)
[2017-10-29] MEDS: INSULIN REGULAR, HUMAN 100 UNIT/ML 3 ML VIAL SQ PRN (18:28)
--- NOTE | 2017-10-29 19:00 | NUR ---
Patient up in bed. Nursing teaching on compliance with xarelto medication and sudden stops pcp should notified. Patient verbalized back instructions.
[2017-10-29] MEDS: DULOXETINE HCL 30 MG CAPSULE.DR PO SCH (23:03)
[2017-10-29] MEDS: LORAZEPAM 1 MG TABLET PO SCH (23:03)
[2017-10-29] MEDS: ZOLPIDEM TARTRATE 5 MG TABLET PO PRN (23:39)
--- NOTE | 2017-10-30 07:30 | NUR ---
RN MS NOTES PT IN BED, AWAKE, ALERT AND ORIENTED, NO COMPLAINT OF PAIN OR ANY DISCOMFORT, BREATHING PATTERN NORMAL, IV FLUIDS INFUSING WELL, BLOOD SUGAR CHECKED, NEEDS ATTENDED.
[2017-10-30] MEDS: BLOOD SUGAR DIAGNOSTIC 1 EACH STRIP VI SCH ×4 (07:55→22:12)
[2017-10-30 08:00] VITALS: BP 116/76
[2017-10-30] MEDS: INSULIN REGULAR, HUMAN 100 UNIT/ML 3 ML VIAL SQ PRN ×3 (08:02→17:17)
[2017-10-30] MEDS: LEVOTHYROXINE SODIUM 50 MCG TABLET PO SCH (08:02)
[2017-10-30 08:29] LABS: HEMATOCRIT 39 % (39-51); HEMOGLOBIN 12.2 g/dL (13.5-17.5); LYMPHOCYTES % (AUTO) 18.8 % (20.0-44.0); MEAN CORPUSCULAR HEMOGLOBIN 24 PG (26.0-33.0); MEAN CORPUSCULAR HGB CONC 32 g/dl (31.0-36.0); MEAN CORPUSCULAR VOLUME 77 fL (80-96); MONOCYTES % (AUTO) 4.9 % (2.0-12.0); NEUTROPHILS % (AUTO) 76.1 % (43.0-81.0); RDW COEFFICIENT OF VARIATION 15.6 (11.5-15.0); RED BLOOD CELL COUNT(AUTO) 5.05 MIL/uL (4.5-6.0); WHITE BLOOD COUNT (AUTO) 8.4 K/uL (4.3-11.0)
[2017-10-30 08:30] LABS: BASOPHILS % (AUTO) 0.2 % (0.0-2.0); LYMPHOCYTES # (AUTO) 1.6 /CMM (0.8-4.8); MONOCYTES # (AUTO) 0.4 /CMM (0.1-1.30); NEUTROPHILS # (AUTO) 6.4 /CMM (1.8-8.9)
[2017-10-30 08:57] LABS: PLATELET COUNT (AUTO) 36 /CMM (150-450)
[2017-10-30] MEDS: METOPROLOL TARTRATE 25 MG TABLET PO SCH ×2 (09:00→17:00)
[2017-10-30 09:09] LABS: CALCIUM, SERUM 8.4 mg/dL (8.5-10.1); CREATININE 1.2 mg/dL (0.6-1.3); MAGNESIUM 1.4 mg/dL (1.8-2.4); PHOSPHORUS 3.7 mg/dL (2.5-4.9); POTASSIUM 3.9 mmol/L (3.5-5.1)
[2017-10-30] MEDS: LINAGLIPTIN 5 MG TABLET PO SCH (09:32)
[2017-10-30 11:58] LABS: LYMPHOCYTES % (MANUAL) 18 % (16-48); MONOCYTES % (MANUAL) 4 % (0-11.0); NEUTROPHILS % (MANUAL) 78 (42-76)
[2017-10-30] MEDS ORDERED: IV NS 0.9% 1,000 ML IV PRN (13:18)
--- NOTE | 2017-10-30 13:21 | NUR ---
STORE STOCK ASSOCIATE NOTES PT IN BED, RESTING, ALERT AND ORIENTED, DR. GAUTAM INFORMED OF ABNORMAL LAB RESULT, ORDERS GIVEN, NOTED.
[2017-10-30] MEDS: Magnesium 1GM/D5W 100ML PREMIX 100 ML IV SCH ×4 (14:23→17:18)
[2017-10-30] MEDS: MUPIROCIN OINT 2% 22 GM TUBE TP SCH ×2 (14:24→23:26)
--- NOTE | 2017-10-30 15:05 | NUR ---
MONITOR TECHNICIAN NOTES PT IN BED, AWAKE, ALERT AND ORIENTED, PT SEEN BY DR. DAIN MD INFORMED PT OF PLAN OF CARE, VERBALIZED UNDERSTANDING, CALL LIGHT PLACED WITHIN REACH, NEEDS ATTENDED.
[2017-10-30 16:00] VITALS: BP 138/77
--- NOTE | 2017-10-30 18:22 | NUR ---
MACHINE TESTER NOTES PT IN BED, AWAKE, ALERT AND ORIENTED, AT BEDSIDE, NOTED IV CATH OUT, PT IS HARDSTICK AND IS REFUSING MIDLINE, DR. GAUTAM INFORMED, ORDERED MAGNESIUM PO AND TO D/C IV FLUIDS, PT IS DRINKING WELL, NO MORE DIARRHEA NOTED, PT STATED HE IS FEELING BETTER, TOLERATING CURRENT DIET WELL, ALL NEEDS ATTENDED.
[2017-10-30] MEDS ORDERED: MAGNESIUM OXIDE 400 MG TABLET PO ONE (18:30)
--- NOTE | 2017-10-30 19:30 | NUR ---
LEAD SPRINKLER INITIAL NOTE RECEIVED SITTING UP IN BED WITH AT BEDSIDE. A/O X4 AND ABLE TO VERBALIZE NEEDS. ON ROOM AIR AND BREATHING EVEN, REGULAR AND UNLABORED. TELE- SINUS RHYTHM 85. NO IV SITE. ENDORSED FROM PREVIOUS RN THAT PT IS A HARD STICK AND IS REFUSING A MIDLINE. CALL LIGHT WITHIN REACH. WILL CONTINUE TO MONITOR.
[2017-10-30 20:00] VITALS: BP 123/78
[2017-10-30] MEDS: LORAZEPAM 1 MG TABLET PO SCH (22:12)
[2017-10-30] MEDS: DULOXETINE HCL 30 MG CAPSULE.DR PO SCH (22:12)
[2017-10-30] MEDS: ZOLPIDEM TARTRATE 5 MG TABLET PO PRN (22:12)
[2017-10-31] VITALS: BP 106/59
[2017-10-31 04:00] VITALS: BP 121/75
--- NOTE | 2017-10-31 06:55 | NUR ---
HEAT TREAT INSPECTOR CLOSING NOTE PT REMAINED STABLE DURING SHIFT. ALL NEEDS ATTENDED TO PROMPTLY. KEPT CLEAN AND DRY. ALL DUE MEDS GIVEN ORDERED AND WELL TOLERATED. NPO STATUS MAINTAINED. CALL LIGHT WITHIN REACH. WILL ENDORSE TO NEXT SHIFT FOR CONTINUITY OF CARE.
[2017-10-31 07:52] LABS: EOSINOPHILS % (AUTO) 0.2 % (0.0-6.0); HEMATOCRIT 37 % (39-51); HEMOGLOBIN 12.2 g/dL (13.5-17.5); LYMPHOCYTES # (AUTO) 1.6 /CMM (0.8-4.8); LYMPHOCYTES % (AUTO) 20.8 % (20.0-44.0); MEAN CORPUSCULAR HEMOGLOBIN 25 PG (26.0-33.0); MEAN CORPUSCULAR HGB CONC 33 g/dl (31.0-36.0); MEAN CORPUSCULAR VOLUME 76 fL (80-96); MONOCYTES # (AUTO) 0.5 /CMM (0.1-1.30); MONOCYTES % (AUTO) 5.9 % (2.0-12.0); NEUTROPHILS # (AUTO) 5.6 /CMM (1.8-8.9); NEUTROPHILS % (AUTO) 73.1 % (43.0-81.0); RED BLOOD CELL COUNT(AUTO) 4.89 MIL/uL (4.5-6.0); WHITE BLOOD COUNT (AUTO) 7.7 K/uL (4.3-11.0)
[2017-10-31 08:00] VITALS: BP 121/75
[2017-10-31 08:00] LABS: PLATELET COUNT (AUTO) 34 /CMM (150-450)
--- NOTE | 2017-10-31 08:00 | NUR ---
SENIOR WINDOWS SYSTEMS ADMINISTRATOR NOTE PATIENT WENT TO BR , MADE SEMI LIQUID STOOL KEEP CLEAN DRY , STATED THAT STOOL WAS COLLECTED ON
--- NOTE | 2017-10-31 08:00 | NUR ---
telephone engineer note patient in bed alert , oriented , all needs attended with tele monitor,sr 71 , no iv per dr order and patient request , on npo at this time , bed in lowest and locked position , call light within reach , plan of care discussed with patient
[2017-10-31 08:05] LABS: CALCIUM, SERUM 8.6 mg/dL (8.5-10.1); CREATININE 1.2 mg/dL (0.6-1.3); MAGNESIUM 1.8 mg/dL (1.8-2.4); PHOSPHORUS 3.7 mg/dL (2.5-4.9); POTASSIUM 3.9 mmol/L (3.5-5.1)
[2017-10-31] MEDS: METOPROLOL TARTRATE 25 MG TABLET PO SCH ×2 (08:22→16:33)
[2017-10-31] MEDS: LEVOTHYROXINE SODIUM 50 MCG TABLET PO SCH (08:22)
[2017-10-31] MEDS: LINAGLIPTIN 5 MG TABLET PO SCH (08:22)
[2017-10-31] MEDS: BLOOD SUGAR DIAGNOSTIC 1 EACH STRIP VI SCH ×3 (08:26→16:38)
[2017-10-31] MEDS ORDERED: DAKINS QUARTER STRENGTH (0.125%) 480 ML BOTTLE TOP SCH (09:00)
[2017-10-31 09:27] LABS: LYMPHOCYTES % (MANUAL) 19 % (16-48); MONOCYTES % (MANUAL) 3 % (0-11.0); NEUTROPHILS % (MANUAL) 78 (42-76)
--- NOTE | 2017-10-31 09:50 | NUR ---
registered nurse cardiac telemetry note per radiology us of abdomen unable to do at this time, call to dr watson notifyed that patient refusing abdominal us . stated ok .will f\u
[2017-10-31 10:00] LABS: IRON, SERUM 51 ug/dl (50-175); TOTAL IRON BINDING CAPACITY 335 ug/dl (250-450)
[2017-10-31 10:27] LABS: FERRITIN 30 ng/mL (8-388)
[2017-10-31] MEDS: MUPIROCIN OINT 2% 22 GM TUBE TP SCH (11:28)
[2017-10-31 12:00] VITALS: BP 118/79
--- NOTE | 2017-10-31 12:00 | NUR ---
NEGATIVE ASSEMBLER NOTE ALL NEEDS ATTENDED TX ON LT FOOT DONE ORDERED, WILL CONT TO MONITOR CLOSELY
[2017-10-31] MEDS: INSULIN REGULAR, HUMAN 100 UNIT/ML 3 ML VIAL SQ PRN ×2 (12:27→17:29)
--- NOTE | 2017-10-31 15:00 | NUR ---
NUTRITION SERVICES ASSISTANT SEEN BY DR DAIN PARKER TO DISCHARGE HOME
[2017-10-31 16:00] VITALS: BP 133/80
[2017-10-31 16:33] VITALS: BP 133/80
--- NOTE | 2017-10-31 18:13 | NUR ---
SHEET METAL FOREMAN NOTE DISCHARGE INSTRUCTION GIVEN, UNDERSTOOD , TELE REMOVED ORDERED , INSTRUCTED TO FOLLOW UP WITH PRIMARY CARE DOCTOR AND FOOT DOCTOR DR MARTINEZ.AND MONITOR CLOSELY FOR WOUND FOR ANY S\S INFECTION ,BELONGING SIGNED , NO IV HL UPON DISCHARGE .TAKEN TO LOBBY ON WITH AND VISUAL EDUCATOR WITH STABLE CONDITION ,EXPLAINED HOW TO TAKE HOME MEDS AND POSSIBLE SIDE EFFECTS Addendum: 10/31/17 at 1821 by RUBENS BRYANT RN NO DIARRHEA UPON DISCHARGE
[2017-11-01 08:09] LABS: IMMUNOGLOBULIN A, SERUM 326 mg/dL (90-386); IMMUNOGLOBULIN G, SERUM 913 mg/dL (700-1600); IMMUNOGLOBULIN M, SERUM 39 mg/dL (20-172)
[2017-11-01 11:12] LABS: *SPE A/G RATIO 1.1 (0.7-1.7); *SPE ALBUMIN 3.2 g/dL (2.9-4.4); *SPE ALPHA-1-GLOBULIN 0.1 g/dL (0.0-0.4); *SPE ALPHA-2-GLOBULIN 0.8 g/dL (0.4-1.0); *SPE BETA GLOBULIN 1.1 g/dL (0.7-1.3); *SPE M-SPIKE Not Observed g/dL (Not Observed)
== END 2017-10-31 18:09 | disposition home or self-care (01) | DRG 380 ==
LOC: ER 10:53 → MEDSG1 14:51 → TELE1 15:14
PROVIDERS: ADMIT Internal Medicine; ATTEND Internal Medicine
PROC: 0JBR0ZZ Excision of Left Foot Subcutaneous Tissue and Fascia, Open Approach (ICD-10-PCS; principal; 2017-10-29)
DX: E11.621 Type 2 diabetes mellitus with foot ulcer (principal); L97.529 Non-pressure chronic ulcer of other part of left foot with unspecified severity; E43 Unspecified severe protein-calorie malnutrition; D61.818 Other pancytopenia; E87.2 Acidosis; E11.42 Type 2 diabetes mellitus with diabetic polyneuropathy; A04.72 Enterocolitis due to Clostridium difficile, not specified as recurrent; D69.6 Thrombocytopenia, unspecified; E11.610 Type 2 diabetes mellitus with diabetic neuropathic arthropathy; E86.0 Dehydration; Z99.3 Dependence on wheelchair; Z86.718 Personal history of other venous thrombosis and embolism; Z83.3 Family history of diabetes mellitus; Z79.899 Other long term (current) drug therapy; Z79.84 Long term (current) use of oral hypoglycemic drugs; Z79.01 Long term (current) use of anticoagulants; Z88.5 Allergy status to narcotic agent; E78.5 Hyperlipidemia, unspecified; E11.319 Type 2 diabetes mellitus with unspecified diabetic retinopathy without macular edema; E83.42 Hypomagnesemia; E66.01 Morbid (severe) obesity due to excess calories; Z68.43 Body mass index [BMI] 50.0-59.9, adult; M21.969 Unspecified acquired deformity of unspecified lower leg; I10 Essential (primary) hypertension; K76.0 Fatty (change of) liver, not elsewhere classified; K21.9 Gastro-esophageal reflux disease without esophagitis; I25.10 Atherosclerotic heart disease of native coronary artery without angina pectoris; E03.9 Hypothyroidism, unspecified; D63.8 Anemia in other chronic diseases classified elsewhere
CPT/HCPCS: 36415; 71010-TC; 80048-TC; 80061-TC; 80076-TC; 82728-TC; 82746; 82784; 82962-TC; 83540-TC; 83605-TC; 83735-TC; 84100-TC; 84155; 84165; 85025-TC; 85730-TC; 86334; 87040-TC; 87070-TC; 87081-TC; A4606; A6402; J1815; J2543; J3370; J3475; J7030; J7060; Z7610

== ENCOUNTER 2018-02-21 13:45 | Outpatient (CLI) | payer OTHER ==
[~2018-02-21 13:45] MED LIST changes: -BLOO-129 IN; -CEFT2VIA14 IV; -HYDR-3326 GT; +LISI-603 PO; -LISI10TA59 PO; +LORA-259 PO; -LORA1TAB82 PO; +METF-442 PO; -METF10002 PO; -VANC1.5P10 IV
== END 2018-02-21 23:59 | disposition home or self-care (01) ==
LOC: WOU 13:45
PROVIDERS: ATTEND Podiatrist Foot & Ankle Surgery
DX: E11.621 Type 2 diabetes mellitus with foot ulcer (principal); L97.422 Non-pressure chronic ulcer of left heel and midfoot with fat layer exposed; E11.42 Type 2 diabetes mellitus with diabetic polyneuropathy; E11.610 Type 2 diabetes mellitus with diabetic neuropathic arthropathy; Q66.7 Congenital pes cavus; Z79.84 Long term (current) use of oral hypoglycemic drugs; E66.8 Other obesity; Z68.43 Body mass index [BMI] 50.0-59.9, adult; Z79.01 Long term (current) use of anticoagulants
CPT/HCPCS: 11042; A6209; A6402

== ENCOUNTER 2018-03-07 13:54 | Outpatient (CLI) | payer OTHER | END 2018-03-07 23:59 | disposition home or self-care (01) | LOC: WOU 13:54 | PROVIDERS: ATTEND Podiatrist Foot & Ankle Surgery | DX: E11.621 Type 2 diabetes mellitus with foot ulcer (principal); L97.422 Non-pressure chronic ulcer of left heel and midfoot with fat layer exposed; E11.65 Type 2 diabetes mellitus with hyperglycemia; E11.42 Type 2 diabetes mellitus with diabetic polyneuropathy; E11.610 Type 2 diabetes mellitus with diabetic neuropathic arthropathy; Z79.84 Long term (current) use of oral hypoglycemic drugs; M21.172 Varus deformity, not elsewhere classified, left ankle; M21.171 Varus deformity, not elsewhere classified, right ankle; E66.9 Obesity, unspecified; Z68.43 Body mass index [BMI] 50.0-59.9, adult; Z79.01 Long term (current) use of anticoagulants | CPT/HCPCS: 11042; A6209; A6402 ==

== ENCOUNTER 2018-03-21 10:50 | Outpatient (CLI) | payer OTHER | END 2018-03-21 23:59 | disposition home or self-care (01) | LOC: WOU 10:50 | PROVIDERS: ATTEND Podiatrist Foot & Ankle Surgery | DX: E11.621 Type 2 diabetes mellitus with foot ulcer (principal); L97.422 Non-pressure chronic ulcer of left heel and midfoot with fat layer exposed; E11.65 Type 2 diabetes mellitus with hyperglycemia; E11.42 Type 2 diabetes mellitus with diabetic polyneuropathy; L84 Corns and callosities; Z89.421 Acquired absence of other right toe(s); E11.610 Type 2 diabetes mellitus with diabetic neuropathic arthropathy; E66.9 Obesity, unspecified; Z79.84 Long term (current) use of oral hypoglycemic drugs; Z79.01 Long term (current) use of anticoagulants | CPT/HCPCS: 11042; A6209; A6402 ==

== ENCOUNTER 2018-04-01 11:00 | Outpatient (CLI) | payer OTHER | END 2018-04-01 23:59 | disposition home or self-care (01) | LOC: WOU 11:00 | PROVIDERS: ATTEND Podiatrist Foot & Ankle Surgery | DX: E11.621 Type 2 diabetes mellitus with foot ulcer (principal); L97.422 Non-pressure chronic ulcer of left heel and midfoot with fat layer exposed; E11.42 Type 2 diabetes mellitus with diabetic polyneuropathy; Z79.84 Long term (current) use of oral hypoglycemic drugs; E66.9 Obesity, unspecified; Z68.43 Body mass index [BMI] 50.0-59.9, adult; Z89.422 Acquired absence of other left toe(s); Z88.8 Allergy status to other drugs, medicaments and biological substances; Z79.01 Long term (current) use of anticoagulants | CPT/HCPCS: 11042; A6402 ==

== ENCOUNTER 2018-04-18 11:10 | Outpatient (CLI) | payer OTHER | END 2018-04-18 23:59 | disposition home or self-care (01) | LOC: WOU 11:10 | PROVIDERS: ATTEND Podiatrist Foot & Ankle Surgery | DX: E11.621 Type 2 diabetes mellitus with foot ulcer (principal); L97.522 Non-pressure chronic ulcer of other part of left foot with fat layer exposed; E11.610 Type 2 diabetes mellitus with diabetic neuropathic arthropathy; Z79.01 Long term (current) use of anticoagulants; Z79.4 Long term (current) use of insulin; E11.42 Type 2 diabetes mellitus with diabetic polyneuropathy; E66.01 Morbid (severe) obesity due to excess calories; Z68.43 Body mass index [BMI] 50.0-59.9, adult; Z89.422 Acquired absence of other left toe(s) | CPT/HCPCS: 11042; A6209; A6402 ==

== ENCOUNTER 2018-05-07 13:26 | Outpatient (CLI) | payer OTHER | END 2018-05-07 23:59 | disposition home or self-care (01) | LOC: WOU 13:26 | PROVIDERS: ATTEND Podiatrist Foot & Ankle Surgery | DX: E11.621 Type 2 diabetes mellitus with foot ulcer (principal); L97.422 Non-pressure chronic ulcer of left heel and midfoot with fat layer exposed; E66.9 Obesity, unspecified; Z68.43 Body mass index [BMI] 50.0-59.9, adult; Z71.3 Dietary counseling and surveillance; E11.42 Type 2 diabetes mellitus with diabetic polyneuropathy; M21.172 Varus deformity, not elsewhere classified, left ankle; Z88.6 Allergy status to analgesic agent; Z79.01 Long term (current) use of anticoagulants; Z79.4 Long term (current) use of insulin | CPT/HCPCS: 11042; A6402; Z7610 ==

== ENCOUNTER 2018-05-16 10:02 | Outpatient (CLI) | payer OTHER ==
[~2018-05-16 10:02] MED LIST changes: -METF-442 PO; +METF10004 PO
== END 2018-05-16 23:59 | disposition home or self-care (01) ==
LOC: WOU 10:02
PROVIDERS: ATTEND Podiatrist Foot & Ankle Surgery
DX: E11.621 Type 2 diabetes mellitus with foot ulcer (principal); L97.421 Non-pressure chronic ulcer of left heel and midfoot limited to breakdown of skin; E11.42 Type 2 diabetes mellitus with diabetic polyneuropathy; L84 Corns and callosities; M21.172 Varus deformity, not elsewhere classified, left ankle; Z89.422 Acquired absence of other left toe(s); E11.610 Type 2 diabetes mellitus with diabetic neuropathic arthropathy; E66.9 Obesity, unspecified; Z68.43 Body mass index [BMI] 50.0-59.9, adult; Z79.01 Long term (current) use of anticoagulants; Z79.84 Long term (current) use of oral hypoglycemic drugs; Z79.899 Other long term (current) drug therapy
CPT/HCPCS: 11042; A6402; Z7610

== ENCOUNTER 2018-05-29 14:03 | Outpatient (CLI) | payer OTHER | END 2018-05-29 23:59 | disposition home or self-care (01) | LOC: WOU 14:03 | PROVIDERS: ATTEND Surgery Vascular Surgery | DX: Z09 Encounter for follow-up examination after completed treatment for conditions other than malignant neoplasm (principal); Z86.718 Personal history of other venous thrombosis and embolism | CPT/HCPCS: 93971-TC; Z7610 ==

== ENCOUNTER 2018-06-04 09:00 | Outpatient (CLI) | payer OTHER | END 2018-06-04 23:59 | disposition home or self-care (01) | LOC: WOU 09:00 | PROVIDERS: ATTEND Podiatrist Foot & Ankle Surgery | DX: E11.621 Type 2 diabetes mellitus with foot ulcer (principal); L97.422 Non-pressure chronic ulcer of left heel and midfoot with fat layer exposed; E11.42 Type 2 diabetes mellitus with diabetic polyneuropathy; L84 Corns and callosities; B35.1 Tinea unguium; Z79.84 Long term (current) use of oral hypoglycemic drugs; Z79.01 Long term (current) use of anticoagulants; E11.610 Type 2 diabetes mellitus with diabetic neuropathic arthropathy; E66.9 Obesity, unspecified; Z68.43 Body mass index [BMI] 50.0-59.9, adult | CPT/HCPCS: 11042; A6402; Z7610 ==

== ENCOUNTER 2018-07-11 10:00 | Outpatient (CLI) | payer OTHER | END 2018-07-11 23:59 | disposition home or self-care (01) | LOC: WOU 10:00 | PROVIDERS: ATTEND Podiatrist Foot & Ankle Surgery | DX: E11.621 Type 2 diabetes mellitus with foot ulcer (principal); L97.422 Non-pressure chronic ulcer of left heel and midfoot with fat layer exposed; E11.42 Type 2 diabetes mellitus with diabetic polyneuropathy; Z79.4 Long term (current) use of insulin; Z79.01 Long term (current) use of anticoagulants; Z89.422 Acquired absence of other left toe(s) | CPT/HCPCS: 11042; A6402; Z7610 ==

== ENCOUNTER 2018-08-01 12:35 | Outpatient (CLI) | payer OTHER | END 2018-08-01 23:59 | disposition home or self-care (01) | LOC: WOU 12:35 | PROVIDERS: ATTEND Podiatrist Foot & Ankle Surgery | DX: E11.621 Type 2 diabetes mellitus with foot ulcer (principal); L97.522 Non-pressure chronic ulcer of other part of left foot with fat layer exposed; E11.610 Type 2 diabetes mellitus with diabetic neuropathic arthropathy; E11.42 Type 2 diabetes mellitus with diabetic polyneuropathy; Z79.01 Long term (current) use of anticoagulants; Z79.84 Long term (current) use of oral hypoglycemic drugs; E66.9 Obesity, unspecified; Z68.43 Body mass index [BMI] 50.0-59.9, adult | CPT/HCPCS: 11042; A6402; Z7610 ==

== ENCOUNTER 2018-09-02 10:45 | Outpatient (CLI) | payer OTHER ==
[~2018-09-02 10:45] MED LIST changes: +METF-442 PO; -METF10004 PO
== END 2018-09-02 23:59 | disposition home or self-care (01) ==
LOC: WOU 10:45
PROVIDERS: ATTEND Podiatrist Foot & Ankle Surgery
DX: E11.621 Type 2 diabetes mellitus with foot ulcer (principal); L97.522 Non-pressure chronic ulcer of other part of left foot with fat layer exposed; E11.42 Type 2 diabetes mellitus with diabetic polyneuropathy; Z79.4 Long term (current) use of insulin; L84 Corns and callosities; E66.9 Obesity, unspecified; Z68.43 Body mass index [BMI] 50.0-59.9, adult
CPT/HCPCS: 11042; A6402; Z7610

== ENCOUNTER 2018-10-31 12:30 | Outpatient (CLI) | payer OTHER ==
[~2018-10-31 12:30] MED LIST changes: +TRAMADOL HCL 50 MG TABLET ONE
== END 2018-10-31 23:59 | disposition home or self-care (01) ==
LOC: WOU 12:30
PROVIDERS: ATTEND Podiatrist Foot & Ankle Surgery
DX: E11.621 Type 2 diabetes mellitus with foot ulcer (principal); L97.422 Non-pressure chronic ulcer of left heel and midfoot with fat layer exposed; L97.522 Non-pressure chronic ulcer of other part of left foot with fat layer exposed; E11.610 Type 2 diabetes mellitus with diabetic neuropathic arthropathy; E11.42 Type 2 diabetes mellitus with diabetic polyneuropathy; Z79.4 Long term (current) use of insulin; E66.9 Obesity, unspecified; Z68.43 Body mass index [BMI] 50.0-59.9, adult; Z71.3 Dietary counseling and surveillance
CPT/HCPCS: 11042; A6402; Z7610

== ENCOUNTER 2018-11-07 11:41 | Outpatient (CLI) | payer OTHER ==
[~2018-11-07 11:41] MED LIST changes: -TRAMADOL HCL 50 MG TABLET ONE
== END 2018-11-07 23:59 | disposition home or self-care (01) ==
LOC: WOU 11:41
PROVIDERS: ATTEND Podiatrist Foot & Ankle Surgery
DX: E11.621 Type 2 diabetes mellitus with foot ulcer (principal); L97.422 Non-pressure chronic ulcer of left heel and midfoot with fat layer exposed; E11.610 Type 2 diabetes mellitus with diabetic neuropathic arthropathy; E11.42 Type 2 diabetes mellitus with diabetic polyneuropathy; E66.9 Obesity, unspecified; Z68.43 Body mass index [BMI] 50.0-59.9, adult; Z79.4 Long term (current) use of insulin
CPT/HCPCS: 11042; A6402; Z7610

== ENCOUNTER 2018-12-05 13:25 | Outpatient (CLI) | payer OTHER | END 2018-12-05 23:59 | disposition home or self-care (01) | LOC: WOU 13:25 | PROVIDERS: ATTEND Podiatrist Foot & Ankle Surgery | DX: E11.621 Type 2 diabetes mellitus with foot ulcer (principal); L97.522 Non-pressure chronic ulcer of other part of left foot with fat layer exposed; L97.512 Non-pressure chronic ulcer of other part of right foot with fat layer exposed; E11.610 Type 2 diabetes mellitus with diabetic neuropathic arthropathy; Z79.4 Long term (current) use of insulin; Z79.01 Long term (current) use of anticoagulants; E11.42 Type 2 diabetes mellitus with diabetic polyneuropathy; E66.9 Obesity, unspecified; Z68.43 Body mass index [BMI] 50.0-59.9, adult; M21.172 Varus deformity, not elsewhere classified, left ankle; M21.171 Varus deformity, not elsewhere classified, right ankle | CPT/HCPCS: 11042; A6402; Z7610 ==

== ENCOUNTER 2018-12-12 10:50 | Outpatient (CLI) | payer OTHER | END 2018-12-12 23:59 | disposition home or self-care (01) | LOC: WOU 10:50 | PROVIDERS: ATTEND Podiatrist Foot & Ankle Surgery | DX: E11.621 Type 2 diabetes mellitus with foot ulcer (principal); L97.422 Non-pressure chronic ulcer of left heel and midfoot with fat layer exposed; L97.512 Non-pressure chronic ulcer of other part of right foot with fat layer exposed; E11.42 Type 2 diabetes mellitus with diabetic polyneuropathy; E11.610 Type 2 diabetes mellitus with diabetic neuropathic arthropathy; E66.9 Obesity, unspecified; M21.172 Varus deformity, not elsewhere classified, left ankle; M21.171 Varus deformity, not elsewhere classified, right ankle; Z79.01 Long term (current) use of anticoagulants; Z79.84 Long term (current) use of oral hypoglycemic drugs | CPT/HCPCS: 11042; A6402; Z7610 ==

== ENCOUNTER 2018-12-24 16:00 | Outpatient (CLI) | payer OTHER | END 2018-12-24 23:59 | disposition home or self-care (01) | LOC: WOU 16:00 | PROVIDERS: ATTEND Podiatrist Foot & Ankle Surgery | DX: E11.621 Type 2 diabetes mellitus with foot ulcer (principal); L97.522 Non-pressure chronic ulcer of other part of left foot with fat layer exposed; L97.512 Non-pressure chronic ulcer of other part of right foot with fat layer exposed; E11.42 Type 2 diabetes mellitus with diabetic polyneuropathy; E11.610 Type 2 diabetes mellitus with diabetic neuropathic arthropathy; E66.9 Obesity, unspecified; Z68.43 Body mass index [BMI] 50.0-59.9, adult; Z79.01 Long term (current) use of anticoagulants; Z79.4 Long term (current) use of insulin | CPT/HCPCS: 11042; A6402 ==

== ENCOUNTER 2019-01-16 13:45 | Outpatient (CLI) | payer OTHER | END 2019-01-16 23:59 | disposition home or self-care (01) | LOC: WOU 13:45 | PROVIDERS: ATTEND Podiatrist Foot & Ankle Surgery | DX: E11.621 Type 2 diabetes mellitus with foot ulcer (principal); L97.422 Non-pressure chronic ulcer of left heel and midfoot with fat layer exposed; L97.512 Non-pressure chronic ulcer of other part of right foot with fat layer exposed; E11.42 Type 2 diabetes mellitus with diabetic polyneuropathy; E11.610 Type 2 diabetes mellitus with diabetic neuropathic arthropathy; M21.172 Varus deformity, not elsewhere classified, left ankle; M21.171 Varus deformity, not elsewhere classified, right ankle; L84 Corns and callosities | CPT/HCPCS: 11042; A6402 ==

== ENCOUNTER 2019-01-30 13:10 | Outpatient (CLI) | payer OTHER | END 2019-01-30 23:59 | disposition home or self-care (01) | LOC: WOU 13:10 | PROVIDERS: ATTEND Podiatrist Foot & Ankle Surgery | DX: E11.621 Type 2 diabetes mellitus with foot ulcer (principal); L97.522 Non-pressure chronic ulcer of other part of left foot with fat layer exposed; L97.512 Non-pressure chronic ulcer of other part of right foot with fat layer exposed; M21.172 Varus deformity, not elsewhere classified, left ankle; M21.171 Varus deformity, not elsewhere classified, right ankle; E11.42 Type 2 diabetes mellitus with diabetic polyneuropathy; Z79.4 Long term (current) use of insulin; Z79.01 Long term (current) use of anticoagulants; Z79.899 Other long term (current) drug therapy; E66.9 Obesity, unspecified; Z68.43 Body mass index [BMI] 50.0-59.9, adult; E11.610 Type 2 diabetes mellitus with diabetic neuropathic arthropathy | CPT/HCPCS: 11042; A6402 ==

== ENCOUNTER 2019-11-20 10:45 | Outpatient (CLI) | payer OTHER | END 2019-11-20 23:59 | disposition home or self-care (01) | LOC: WOU 10:45 | PROVIDERS: ATTEND Podiatrist Foot & Ankle Surgery | DX: E11.621 Type 2 diabetes mellitus with foot ulcer (principal); L97.513 Non-pressure chronic ulcer of other part of right foot with necrosis of muscle; L97.523 Non-pressure chronic ulcer of other part of left foot with necrosis of muscle; M21.172 Varus deformity, not elsewhere classified, left ankle; M21.171 Varus deformity, not elsewhere classified, right ankle; L84 Corns and callosities; E66.01 Morbid (severe) obesity due to excess calories; Z68.43 Body mass index [BMI] 50.0-59.9, adult; E11.42 Type 2 diabetes mellitus with diabetic polyneuropathy; Z79.4 Long term (current) use of insulin; Z79.01 Long term (current) use of anticoagulants; Z86.718 Personal history of other venous thrombosis and embolism; Z89.422 Acquired absence of other left toe(s) | CPT/HCPCS: 11042; 11043 ==